=== PATIENT | female | born 1950 | race Hispanic/Latino ===

== ENCOUNTER 2020-11-28 19:51 | Inpatient (IN) | payer MEDICARE, SELFPAY ==
[2020-11-28 23:50] VITALS: BMI 26.7
[2020-11-29] MEDS ORDERED: Acetaminophen 325 MG TAB PO PRN (06:04)
[2020-11-29] MEDS ORDERED: HumaLOG 300 UNITS/3 ML VIAL SC PRN (06:04)
[2020-11-29] MEDS ORDERED: Ondansetron ODT 4 MG TAB PO PRN (06:04)
[2020-11-29] MEDS ORDERED: Dextrose 50% Abboject 50 ML SYRINGE SLOW IVP PRN (06:04)
[2020-11-29] MEDS ORDERED: Ondansetron PF 4 MG/2 ML Vial IVP PRN (06:04)
[2020-11-29] MEDS ORDERED: Acetaminophen 650 MG Suppository PR PRN (06:04)
[2020-11-29] MEDS ORDERED: Dextrose 5% in Water 1,000 ML IV PRN (06:04)
[2020-11-29] MEDS ORDERED: methylPREDNISolone Sod Succ/PF 125 MG/2 ML VIAL IVP SCH (07:02)
[2020-11-29] MEDS ORDERED: Piperacillin/Tazobactam 3.375 GM in Sodium Chloride 0.9% 100 ML IVPB SCH (07:30)
[2020-11-29] MEDS ORDERED: Enoxaparin Sodium 40 MG/0.4 ML SYRINGE SC SCH (09:00)
[2020-11-29] MEDS: Piperacillin/Tazobactam 3.375 GM in Sodium Chloride 0.9% 100 ML IVPB SCH ×2 (13:20→20:31)
[2020-11-29] MEDS: busPIRone HCl 10 MG TAB PO SCH ×2 (14:56→20:34)
[2020-11-29] MEDS: Baclofen 10 MG TAB PO SCH ×2 (14:57→20:34)
[2020-11-29] MEDS: Atorvastatin Calcium 20 MG TAB PO SCH (20:33)
[2020-11-29] MEDS: Apixaban 5 MG TAB PO SCH (20:35)
[2020-11-30] MEDS: Piperacillin/Tazobactam 3.375 GM in Sodium Chloride 0.9% 100 ML IVPB SCH ×3 (04:37→21:16)
[2020-11-30 05:07] LABS: #Lymphocytes 1.1 thou/uL (1.20-3.40); #Monocytes 0.8 thou/uL (0.11-0.59); %Basophils 0.2 % (0.0-1.0); %Eosinophils 0.1 % (0.0-10.0); %Lymphocytes 13.2 % (21.0-51.0); %Monocytes 10.4 % (0.0-10.0); %Neutrophils 76.1 % (42.0-75.0); Mean Corpuscular HGB CONC 32.6 g/dL (32.0-36.0); Mean Corpuscular Hemoglobin 26.7 pg (27.0-31.0); Mean Corpuscular Volume 81.9 fL (78.0-98.0); Mean Platelet Volume 7.9 fL (7.4-10.4); Platelet Count 258 thou/uL (130-400); RBC Distribution Width 16.1 % (11.5-14.5); Red Blood Cell (RBC) Count 3.39 mill/uL (4.20-5.40); White Blood Cell (WBC) Count 7.9 thou/uL (4.8-10.8)
[2020-11-30 05:32] LABS: Anion Gap 15 mmol/L (10-20); BUN (Urea Nitrogen) 23 mg/dL (9.8-20.1); Calc. Creatinine Clearance 45 mL/min (70-130); Calcium 9.1 mg/dL (7.8-10.44); Carbon Dioxide 27 mmol/L (23-31); Chloride 102 mmol/L (98-107); Glucose 130 mg/dL (83-110); Potassium 4.6 mmol/L (3.5-5.1); Sodium 139 mmol/L (136-145)
[2020-11-30] MEDS: Citalopram 20 MG TAB PO SCH (09:02)
[2020-11-30] MEDS: Apixaban 5 MG TAB PO SCH (09:03)
[2020-11-30] MEDS: Ascorbic Acid 500 mg Chewable Tablet PO SCH (09:03)
[2020-11-30] MEDS: busPIRone HCl 10 MG TAB PO SCH ×3 (09:03→21:17)
[2020-11-30] MEDS: Baclofen 10 MG TAB PO SCH ×3 (09:04→21:16)
[2020-11-30] MEDS: Allopurinol 100 MG TAB PO SCH (09:04)
[2020-11-30] MEDS: Atorvastatin Calcium 20 MG TAB PO SCH (21:16)
[2020-12-01] MEDS: Piperacillin/Tazobactam 3.375 GM in Sodium Chloride 0.9% 100 ML IVPB SCH ×3 (04:56→20:32)
[2020-12-01 05:01] LABS: #Eosinphils 0.1 thou/uL (0.0-0.7); #Lymphocytes 1.2 thou/uL (1.20-3.40); #Monocytes 0.7 thou/uL (0.11-0.59); #Neutrophils 4.3 thou/uL (1.40-6.50); %Basophils 0.3 % (0.0-1.0); %Eosinophils 1.9 % (0.0-10.0); %Lymphocytes 19.2 % (21.0-51.0); %Monocytes 10.2 % (0.0-10.0); %Neutrophils 68.4 % (42.0-75.0); Hemoglobin 8.9 g/dL (12.0-16.0); Mean Corpuscular HGB CONC 32.8 g/dL (32.0-36.0); Mean Corpuscular Hemoglobin 26.7 pg (27.0-31.0); Mean Corpuscular Volume 81.5 fL (78.0-98.0); Platelet Count 229 thou/uL (130-400); RBC Distribution Width 16.3 % (11.5-14.5); Red Blood Cell (RBC) Count 3.33 mill/uL (4.20-5.40); White Blood Cell (WBC) Count 6.3 thou/uL (4.8-10.8)
[2020-12-01 05:22] LABS: Anion Gap 14 mmol/L (10-20); BUN (Urea Nitrogen) 22 mg/dL (9.8-20.1); Calc. Creatinine Clearance 46 mL/min (70-130); Calcium 8.5 mg/dL (7.8-10.44); Carbon Dioxide 27 mmol/L (23-31); Chloride 103 mmol/L (98-107); Glucose 95 mg/dL (83-110); Potassium 3.6 mmol/L (3.5-5.1); Sodium 140 mmol/L (136-145)
[2020-12-01] MEDS: Citalopram 20 MG TAB PO SCH (09:20)
[2020-12-01] MEDS: Baclofen 10 MG TAB PO SCH ×3 (09:20→20:33)
[2020-12-01] MEDS: busPIRone HCl 10 MG TAB PO SCH ×3 (09:20→20:32)
[2020-12-01] MEDS: Allopurinol 100 MG TAB PO SCH (09:20)
[2020-12-01] MEDS: Ascorbic Acid 500 mg Chewable Tablet PO SCH (09:20)
[2020-12-01] MEDS: HumaLOG 300 UNITS/3 ML VIAL SC PRN (16:48)
[2020-12-01] MEDS: Atorvastatin Calcium 20 MG TAB PO SCH (20:32)
[2020-12-02] MEDS: Piperacillin/Tazobactam 3.375 GM in Sodium Chloride 0.9% 100 ML IVPB SCH ×2 (04:29→12:23)
[2020-12-02] MEDS: Citalopram 20 MG TAB PO SCH (08:36)
[2020-12-02] MEDS: Ascorbic Acid 500 mg Chewable Tablet PO SCH (08:36)
[2020-12-02] MEDS: busPIRone HCl 10 MG TAB PO SCH ×3 (08:36→21:00)
[2020-12-02] MEDS: Allopurinol 100 MG TAB PO SCH (08:36)
[2020-12-02] MEDS: Baclofen 10 MG TAB PO SCH ×3 (08:36→21:00)
[2020-12-02] MEDS ORDERED: Furosemide 20 MG/2 ML VIAL SLOW IVP SCH (13:45)
[2020-12-02] MEDS: HumaLOG 300 UNITS/3 ML VIAL SC PRN (17:45)
[2020-12-02] MEDS: Amoxicillin/Potassium Clav 875 MG TAB PO SCH (21:00)
[2020-12-02] MEDS: Atorvastatin Calcium 20 MG TAB PO SCH (21:00)
[2020-12-03] MEDS: Amoxicillin/Potassium Clav 875 MG TAB PO SCH ×2 (10:15→21:24)
[2020-12-03] MEDS: Allopurinol 100 MG TAB PO SCH (10:15)
[2020-12-03] MEDS: Ascorbic Acid 500 mg Chewable Tablet PO SCH (10:16)
[2020-12-03] MEDS: Baclofen 10 MG TAB PO SCH ×3 (10:16→21:24)
[2020-12-03] MEDS: busPIRone HCl 10 MG TAB PO SCH ×3 (10:17→21:23)
[2020-12-03] MEDS: Citalopram 20 MG TAB PO SCH (10:18)
[2020-12-03 16:58] LABS: #Eosinphils 0.1 thou/uL (0.0-0.7); #Lymphocytes 1.1 thou/uL (1.20-3.40); #Monocytes 0.8 thou/uL (0.11-0.59); %Basophils 0.5 % (0.0-1.0); %Eosinophils 1.8 % (0.0-10.0); %Lymphocytes 15.8 % (21.0-51.0); %Monocytes 11.5 % (0.0-10.0); %Neutrophils 70.3 % (42.0-75.0); Hemoglobin 9.3 g/dL (12.0-16.0); Mean Corpuscular HGB CONC 31.7 g/dL (32.0-36.0); Mean Corpuscular Hemoglobin 25.9 pg (27.0-31.0); Mean Corpuscular Volume 81.8 fL (78.0-98.0); Mean Platelet Volume 8.1 fL (7.4-10.4); Platelet Count 214 thou/uL (130-400); RBC Distribution Width 16.1 % (11.5-14.5); White Blood Cell (WBC) Count 7.2 thou/uL (4.8-10.8)
[2020-12-03 17:35] LABS: Anion Gap 13 mmol/L (10-20); BUN (Urea Nitrogen) 13 mg/dL (9.8-20.1); Calc. Creatinine Clearance 53 mL/min (70-130); Calcium 8.5 mg/dL (7.8-10.44); Carbon Dioxide 27 mmol/L (23-31); Chloride 102 mmol/L (98-107); Glucose 106 mg/dL (83-110); Potassium 4.5 mmol/L (3.5-5.1); Sodium 137 mmol/L (136-145)
[2020-12-03] MEDS: Apixaban 5 MG TAB PO SCH (21:23)
[2020-12-03] MEDS: Atorvastatin Calcium 20 MG TAB PO SCH (21:24)
[2020-12-04] MEDS ORDERED: Furosemide 20 MG/2 ML VIAL SLOW IVP SCH (08:45)
[2020-12-04] MEDS ORDERED: Lisinopril 10 MG TAB PO SCH (09:00)
[2020-12-04] MEDS ORDERED: metFORMIN 500 MG TAB PO SCH (09:00)
[2020-12-04] MEDS ORDERED: Furosemide 40 MG TAB PO SCH (09:00)
[2020-12-04] MEDS: Ascorbic Acid 500 mg Chewable Tablet PO SCH (09:42)
[2020-12-04] MEDS: Amoxicillin/Potassium Clav 875 MG TAB PO SCH (09:42)
[2020-12-04] MEDS: Citalopram 20 MG TAB PO SCH (09:43)
[2020-12-04] MEDS: Allopurinol 100 MG TAB PO SCH (09:44)
[2020-12-04] MEDS: Apixaban 5 MG TAB PO SCH (09:45)
[2020-12-04] MEDS: Baclofen 10 MG TAB PO SCH ×2 (10:05→15:45)
[2020-12-04] MEDS: busPIRone HCl 10 MG TAB PO SCH ×2 (10:05→15:45)
[2020-12-04 12:41] VITALS: BP 185/80; TEMP 97.8
[2020-12-04] MEDS: HumaLOG 300 UNITS/3 ML VIAL SC PRN (13:09)
== END 2020-12-04 16:05 | disposition home or self-care (01) | DRG 291 ==
LOC: 2NO 19:51
PROVIDERS: ADMIT Student in an Organized Health Care Education/Training Program; ATTEND Internal Medicine
DX: I50.33 Acute on chronic diastolic (congestive) heart failure (principal); G93.41 Metabolic encephalopathy; N17.9 Acute kidney failure, unspecified; I82.C11 Acute embolism and thrombosis of right internal jugular vein; I48.91 Unspecified atrial fibrillation; C32.9 Malignant neoplasm of larynx, unspecified; D64.9 Anemia, unspecified; M10.9 Gout, unspecified; E78.5 Hyperlipidemia, unspecified; N18.9 Chronic kidney disease, unspecified; E11.22 Type 2 diabetes mellitus with diabetic chronic kidney disease; J04.0 Acute laryngitis; E04.1 Nontoxic single thyroid nodule; Z79.51 Long term (current) use of inhaled steroids; Z87.891 Personal history of nicotine dependence; Z85.21 Personal history of malignant neoplasm of larynx; Z79.899 Other long term (current) drug therapy
CPT/HCPCS: 36415; 36416; 70551; 80048; 83880; 84484; 85025; 93306; J1650; J1815; J1940; J2543; J2930; J3490; Q0162